=== PATIENT | female | born 1980 | race Caucasian/White ===

== ENCOUNTER 2016-12-04 18:11 | Emergency (ER) | payer OTHER ==
--- NOTE | 2016-12-04 20:16 | ED NURSING NOTES ---
Clinical Report - Nurses [facility] [address] [place] [address] 12/04/2016 18:13 Patient: ALIX WOODRUFF TRIAGE Acuity: LEVEL 4. Chief Complaint: RIGHT UPPER EXTREMITY NUMBNESS and TINGLING. Location of symptoms- right arm. Alert. No acute distress. SEPSIS SCREEN: Sepsis Screen. Negative (no infection suspected/documented). NETTIE COMA SCORE: Nettie Coma Scale: 15- eyes open spontaneously (4); best verbal response- oriented x 4 (5); best motor response- obeys commands (6). --18:44 Shanna Gilbert R.N. 18:35 12/04/16. BP: 126/82. HR: 100. RR: 20. O2 saturation: 100% on room air. Temp: 98.1 F (oral). Pain level now: 0/10. --18:44 Shanna Gilbert R.N. Weight: 77.1 kg stated. Height/Length: 65 inches Per Patient. BMI: 28.3. --18:42 Shanna Gilbert R.N. Medications Methylphenidate HCl Oral. --18:40 Shanna Gilbert R.N. Suboxone Sublingual (Film 4-1 mg), daily. --18:41 Shanna Gilbert R.N. Medication/allergy information source: the patient. --18:44 Shanna Gilbert R.N. Allergies CONTRAST DYE. PCN. --18:40 Shanna Gilbert R.N. Zithromax. --18:40 Shanna Gilbert R.N. Naproxen. --18:41 Shanna Gilbert R.N. History ( assessed by this RN in [facility]. Negative FAST exam. Absence of facial droop, slurred speech. Equal strength in bilat upper extremities, equal support group manager). --18:21 Andi Khalil R.N. Arrived by private vehicle. Historian: patient. Unaccompanied. This occurred (2 days ago). ( Pt reports right arm weakness. She states "it feels like it is asleep." Pt also reports her she just found out her has been cheating on her and she is very emotional and stressed.). PAST MEDICAL HX: The patient has had a hysterectomy. SOCIAL HX: Current every day heavy tobacco smoker (cigarette and electronic cigarrettes)- less than 1 pack per day. History of drug use. Is a recovering addict. No alcohol use. FALL RISK ASSESSMENT: Fall risk assessment completed. No fall risk identified. NUTRITIONAL RISK ASSESSMENT: The nutritional risk assessment revealed no deficiencies. FUNCTIONAL ASSESSMENT: Functional assessment: no impairments noted. LEARNING NEEDS ASSESSMENT: The learning needs assessment revealed no barriers. SKIN INTEGRITY ASSESSMENT: Skin integrity risk assessment completed. No skin integrity risk identified. --18:44 Shanna Gilbert R.N. PROBLEMS: Cellulitis. Sprain. Heart Murmur. Myofascial Strain. Prior Injury, Same Area. Contusion. Back Pain. Sciatica. Lumbar Strain. Fall. --18:41 Shanna Gilbert R.N. ADDITIONAL SURGERIES: Cholecystectomy. . Hysterectomy. --18:41 Shanna Gilbert R.N. Assessment GENERAL / NEURO / PSYCH: Alert. Oriented X 4. Appears in no acute distress. (tearful). Patient appears calm and cooperative. RESPIRATORY: Respirations not labored. CVS: Capillary refill less than 2 seconds. GI / : Abdomen soft and nontender. SKIN: Mucous membranes are pink. Skin is warm and dry. --18:44 Shanna Gilbert R.N. Interventions ID band on patient. To treatment room. --18:44 Shanna Gilbert R.N. PHYSICAL ASSESSMENT Ambulatory to room. GENERAL / NEURO / PSYCH: Oriented X 4. Alert. Appears in no acute distress. EXTREMITIES: Extremities exhibit normal ROM. Neuro-vascular status intact to the extremity. No upper extremity edema. SKIN: Skin intact. Skin is warm and dry. --18:45 Shanna Gilbert R.N. NURSING PROGRESS NOTES 18:45 12/04/16. Two patient identifiers checked. Call light placed in reach. Side rails up x 1. Bed placed in lowest position. Brakes of bed on. Patient ready for evaluation- chart flagged. --18:45 Shanna Gilbert R.N. 19:03 12/04/16. ( Patient reports ruptured discs in neck and back. She reports C2 issues in her neck.). --19:03 Christine Joya. DISPOSITION / DISCHARGE Condition at departure: stable. No learning barriers present. Discharge instructions provided and reviewed with the patient. Patient verbalized understanding. Written instructions provided in Welsh. ( Follow up with PCP in one week as needed. Apply ice or heat as needed.). The patient was discharged by the physician store administrative assistant. She was discharged home and accompanied by water softener servicer. She left the Emergency Department ambulatory and via private vehicle. Locks Tender driving. ( Patient declined discharge vitals.). --22:16 Christine Joya 20:20 12/04/16. BP: deferred. HR: deferred. RR: deferred. O2 saturation: deferred. Temp: deferred. Pain level now deferred. --22:16 Christine Joya. Locked/Released at 12/04/2016 23:33 by Christine Joya,
--- NOTE | 2016-12-04 20:16 | ED CLINICAL REPORT ---
Clinical Report - Physicians/Mid Levels [facility] [address] [place] [address] 12/04/2016 18:13 Patient: ALIX WOODRUFF Time Seen: 19:52. Arrived- By private vehicle. Historian- patient. HISTORY OF PRESENT ILLNESS Chief Complaint: UPPER EXTREMITY PAIN and ALTERED SENSATION and ; PROBLEM IN THE RIGHT UPPER EXTREMITY. Is still present. Severity is described as being mild. The quality is noted to be aching. Symptoms located in the area of the right forearm. No chest pain, difficulty breathing, swelling or sensory loss. She has not had redness. Repetitive hand use at work. Patient denies an injury. Similar symptoms previously: None. Recent medical care: Not recently seen/assessed. REVIEW OF SYSTEMS No fever or chills. PAST HISTORY See nurses notes. Problems: Cellulitis. Sprain. Heart Murmur. Myofascial Strain. Prior Injury, Same Area. Contusion. Back Pain. Sciatica. Lumbar Strain. Fall. Medications: Suboxone Sublingual (Film 4-1 mg), daily. Methylphenidate HCl Oral. Allergies: CONTRAST DYE. Naproxen. PCN. Zithromax. SOCIAL HISTORY Smoker- current status unknown. Alcohol use. History of drug use. FAMILY HISTORY Negative. ADDITIONAL NOTES The nursing notes have been reviewed with agreement regarding the chief complaint, HPI, ROS, PMH and patient medications and allergies. PHYSICAL EXAM Vital Signs: 12/04/2016 18:35 BP: 126/82. HR: 100. RR: 20. O2 saturation: 100%. Temp: 98.1 F. Pain level now: 0/10. Have been reviewed. Appearance: Alert. Oriented X3. No acute distress. Skin: Skin intact. Skin warm and dry. Normal skin color. Normal skin turgor. Extremities: No signs of infection present in the upper extremities. No upper extremity pulse deficit present. Upper extremity capillary refill not prolonged. No upper extremity edema. No axillary adenopathy. Negative Tinel sign. Negative Joann test. Right forearm: mild tenderness. Neurovascular intact distally. No erythema, swelling, laceration or abrasion. Neuro: Oriented X 3. PROGRESS AND PROCEDURES Course of Care: Patient is stable. CLINICAL IMPRESSION Acute traumatic tendonitis in the right forearm. INSTRUCTIONS Apply ice for 10 minutes three times a day for three days followed by dry heat. No restrictions to activity. No dietary restrictions. Warnings: GENERAL WARNINGS: Return or contact your physician immediately if your condition worsens or changes unexpectedly, if not improving as expected, or if other problems arise. Your Current Medications: CONTINUE TAKING THE FOLLOWING MEDICATIONS: Methylphenidate HCl Oral. Suboxone Sublingual : Film 4-1 mg, daily. Follow-up: Follow up with your doctor if not better. Understanding of the discharge instructions verbalized by patient. (Electronically signed by Tiffany Manning PA-C 12/05/2016 0:37)
--- NOTE | 2016-12-04 20:16 | ED CLINICAL REPORT ---
Clinical Report - Physicians/Mid Levels [facility] [address] [place] [address] 12/04/2016 18:13 Patient: ALIX WOODRUFF Time Seen: 19:52. Arrived- By private vehicle. Historian- patient. HISTORY OF PRESENT ILLNESS Chief Complaint: UPPER EXTREMITY PAIN and ALTERED SENSATION and ; PROBLEM IN THE RIGHT UPPER EXTREMITY. Is still present. Severity is described as being mild. The quality is noted to be aching. Symptoms located in the area of the right forearm. No chest pain, difficulty breathing, swelling or sensory loss. She has not had redness. Repetitive hand use at work. Patient denies an injury. Similar symptoms previously: None. Recent medical care: Not recently seen/assessed. REVIEW OF SYSTEMS No fever or chills. PAST HISTORY See nurses notes. Problems: Cellulitis. Sprain. Heart Murmur. Myofascial Strain. Prior Injury, Same Area. Contusion. Back Pain. Sciatica. Lumbar Strain. Fall. Medications: Suboxone Sublingual (Film 4-1 mg), daily. Methylphenidate HCl Oral. Allergies: CONTRAST DYE. Naproxen. PCN. Zithromax. SOCIAL HISTORY Smoker- current status unknown. Alcohol use. History of drug use. FAMILY HISTORY Negative. ADDITIONAL NOTES The nursing notes have been reviewed with agreement regarding the chief complaint, HPI, ROS, PMH and patient medications and allergies. PHYSICAL EXAM Vital Signs: 12/04/2016 18:35 BP: 126/82. HR: 100. RR: 20. O2 saturation: 100%. Temp: 98.1 F. Pain level now: 0/10. Have been reviewed. Appearance: Alert. Oriented X3. No acute distress. Skin: Skin intact. Skin warm and dry. Normal skin color. Normal skin turgor. Extremities: No signs of infection present in the upper extremities. No upper extremity pulse deficit present. Upper extremity capillary refill not prolonged. No upper extremity edema. No axillary adenopathy. Negative Tinel sign. Negative Joann test. Right forearm: mild tenderness. Neurovascular intact distally. No erythema, swelling, laceration or abrasion. Neuro: Oriented X 3. PROGRESS AND PROCEDURES Course of Care: Patient is stable. CLINICAL IMPRESSION Acute traumatic tendonitis in the right forearm. INSTRUCTIONS Apply ice for 10 minutes three times a day for three days followed by dry heat. No restrictions to activity. No dietary restrictions. Warnings: GENERAL WARNINGS: Return or contact your physician immediately if your condition worsens or changes unexpectedly, if not improving as expected, or if other problems arise. Your Current Medications: CONTINUE TAKING THE FOLLOWING MEDICATIONS: Methylphenidate HCl Oral. Suboxone Sublingual : Film 4-1 mg, daily. Follow-up: Follow up with your doctor if not better. Understanding of the discharge instructions verbalized by patient. (Electronically signed by Tiffany Manning PA-C 12/05/2016 0:37)
--- NOTE | 2016-12-04 20:16 | ED NURSING NOTES ---
Clinical Report - Nurses [facility] [address] [place] [address] 12/04/2016 18:13 Patient: ALIX WOODRUFF TRIAGE Acuity: LEVEL 4. Chief Complaint: RIGHT UPPER EXTREMITY NUMBNESS and TINGLING. Location of symptoms- right arm. Alert. No acute distress. SEPSIS SCREEN: Sepsis Screen. Negative (no infection suspected/documented). NETTIE COMA SCORE: Nettie Coma Scale: 15- eyes open spontaneously (4); best verbal response- oriented x 4 (5); best motor response- obeys commands (6). --18:44 Shanna Gilbert R.N. 18:35 12/04/16. BP: 126/82. HR: 100. RR: 20. O2 saturation: 100% on room air. Temp: 98.1 F (oral). Pain level now: 0/10. --18:44 Shanna Gilbert R.N. Weight: 77.1 kg stated. Height/Length: 65 inches Per Patient. BMI: 28.3. --18:42 Shanna Gilbert R.N. Medications Methylphenidate HCl Oral. --18:40 Shanna Gilbert R.N. Suboxone Sublingual (Film 4-1 mg), daily. --18:41 Shanna Gilbert R.N. Medication/allergy information source: the patient. --18:44 Shanna Gilbert R.N. Allergies CONTRAST DYE. PCN. --18:40 Shanna Gilbert R.N. Zithromax. --18:40 Shanna Gilbert R.N. Naproxen. --18:41 Shanna Gilbert R.N. History ( assessed by this RN in [facility]. Negative FAST exam. Absence of facial droop, slurred speech. Equal strength in bilat upper extremities, equal hotel and dining room cashier). --18:21 Andi Khalil R.N. Arrived by private vehicle. Historian: patient. Unaccompanied. This occurred (2 days ago). ( Pt reports right arm weakness. She states "it feels like it is asleep." Pt also reports her she just found out her has been cheating on her and she is very emotional and stressed.). PAST MEDICAL HX: The patient has had a hysterectomy. SOCIAL HX: Current every day heavy tobacco smoker (cigarette and electronic cigarrettes)- less than 1 pack per day. History of drug use. Is a recovering addict. No alcohol use. FALL RISK ASSESSMENT: Fall risk assessment completed. No fall risk identified. NUTRITIONAL RISK ASSESSMENT: The nutritional risk assessment revealed no deficiencies. FUNCTIONAL ASSESSMENT: Functional assessment: no impairments noted. LEARNING NEEDS ASSESSMENT: The learning needs assessment revealed no barriers. SKIN INTEGRITY ASSESSMENT: Skin integrity risk assessment completed. No skin integrity risk identified. --18:44 Shanna Gilbert R.N. PROBLEMS: Cellulitis. Sprain. Heart Murmur. Myofascial Strain. Prior Injury, Same Area. Contusion. Back Pain. Sciatica. Lumbar Strain. Fall. --18:41 Shanna Gilbert R.N. ADDITIONAL SURGERIES: Cholecystectomy. . Hysterectomy. --18:41 Shanna Gilbert R.N. Assessment GENERAL / NEURO / PSYCH: Alert. Oriented X 4. Appears in no acute distress. (tearful). Patient appears calm and cooperative. RESPIRATORY: Respirations not labored. CVS: Capillary refill less than 2 seconds. GI / : Abdomen soft and nontender. SKIN: Mucous membranes are pink. Skin is warm and dry. --18:44 Shanna Gilbert R.N. Interventions ID band on patient. To treatment room. --18:44 Shanna Gilbert R.N. PHYSICAL ASSESSMENT Ambulatory to room. GENERAL / NEURO / PSYCH: Oriented X 4. Alert. Appears in no acute distress. EXTREMITIES: Extremities exhibit normal ROM. Neuro-vascular status intact to the extremity. No upper extremity edema. SKIN: Skin intact. Skin is warm and dry. --18:45 Shanna Gilbert R.N. NURSING PROGRESS NOTES 18:45 12/04/16. Two patient identifiers checked. Call light placed in reach. Side rails up x 1. Bed placed in lowest position. Brakes of bed on. Patient ready for evaluation- chart flagged. --18:45 Shanna Gilbert R.N. 19:03 12/04/16. ( Patient reports ruptured discs in neck and back. She reports C2 issues in her neck.). --19:03 Christine Joya. DISPOSITION / DISCHARGE Condition at departure: stable. No learning barriers present. Discharge instructions provided and reviewed with the patient. Patient verbalized understanding. Written instructions provided in Croatian. ( Follow up with PCP in one week as needed. Apply ice or heat as needed.). The patient was discharged by the physician export sales assistant. She was discharged home and accompanied by salesperson men's and boys' clothing. She left the Emergency Department ambulatory and via private vehicle. Clerical Support driving. ( Patient declined discharge vitals.). --22:16 Christine Joya 20:20 12/04/16. BP: deferred. HR: deferred. RR: deferred. O2 saturation: deferred. Temp: deferred. Pain level now deferred. --22:16 Christine Joya. Locked/Released at 12/04/2016 23:33 by Christine Joya,
--- NOTE | 2016-12-05 00:37 | ED DISCHARGE INSTRUCTIONS ---
Patient: ALIX WOODRUFF General Instructions [facility] VisitID: [id number] [place] [address] 36y, F Registration Date/Time: 12/04/2016 Acute traumatic tendonitis in the right forearm. INSTRUCTIONS Apply ice for 10 minutes three times a day for three days followed by dry heat. No restrictions to activity. No dietary restrictions. Warnings: GENERAL WARNINGS: Return or contact your physician immediately if your condition worsens or changes unexpectedly, if not improving as expected, or if other problems arise. Your Current Medications: CONTINUE TAKING THE FOLLOWING MEDICATIONS: Methylphenidate HCl Oral. Suboxone Sublingual : Film 4-1 mg, daily. Follow-up: Follow up with your doctor if not better. Understanding of the discharge instructions verbalized by patient. ADDITIONAL INFORMATION Tendonitis A tendon is the thick fibrous cord that joins muscle to bone and causes joints to move. Tendonitis is inflammation of the tendon which may be due to overuse, injury or infection. This usually involves the shoulders, forearm, wrist, hands and foot. Symptoms include local pain, swelling and tenderness to the touch. Movement of the involved joint increases the pain. Tendonitis requires about 4 to 6 weeks to heal. It is treated by preventing motion of the tendon with a splint or brace and use of anti-inflammatory medicine. Home Care: Apply an ice pack (ice cubes in a plastic bag, wrapped in a towel) over the injured area for 20 minutes every 1-2 hours the first day for pain relief. Continue this 3-4 times a day until the pain and swelling goes away. Rest the inflamed joint and protect it from movement. You may use ibuprofen (Motrin, Advil) or naproxen (Aleve, Naprosyn) to treat pain and inflammation, unless another medicine was prescribed. If you can't take these medicines, acetaminophen (Tylenol) may help with the pain, but does not treat inflammation. [NOTE : If you have chronic liver or kidney disease or ever had a stomach ulcer or GI bleeding, talk with your doctor before using these medicines.] As your symptoms improve, begin gradual motion at the involved joint. Follow Up With Your Doctor If Not Improving After The First Five Days Of Treatment. Get Prompt Medical Attention If Any Of The Following Occur: Redness over the painful area Increasing pain or swelling at the joint Fever of 100.4F (38C) or higher, or as directed by your healthcare provider You have been given the following additional information: Tendonitis No restrictions to activity. (Electronically signed by Tiffany Manning PA-C 12/05/2016 0:37)
--- NOTE | 2016-12-05 00:37 | ED MED RECONCILIATION SUMMARY ---
Patient: ALIX WOODRUFF Medication Reconciliation Report [facility] VisitID: [id number] [address] [place] [address] 36y, F Registration Date/Time: 12/04/2016 Weight: 77.1 kg Height/Length: 65 in. BMI: 28.3 ALLERGIES: CONTRAST DYE, Naproxen, PCN, Zithromax The patient's Home Medications are listed below: CONTINUE TAKING THE FOLLOWING MEDICATIONS: Methylphenidate HCl Oral Suboxone Sublingual (4-1 mg), daily The source(s) of the original Home Medication information: patient The following Medications were given to the patient in the Emergency Department: None. The following Medications were prescribed to the patient: None.
--- NOTE | 2016-12-05 00:37 | ED MAR SUMMARY ---
..... Medication Administration Record [facility] [address] [place], [place] [id number] Patient: ALIX WOODRUFF Visit ID: [id number] 36y, F Weight: 77.1 kg Height/Length: 65 in BMI: 28.3 ALLERGIES: Naproxen, CONTRAST DYE, PCN, Zithromax
--- NOTE | 2016-12-05 00:37 | ED MED RECONCILIATION SUMMARY ---
Patient: ALIX WOODRUFF Medication Reconciliation Report [facility] VisitID: [id number] [address] [place] [address] 36y, F Registration Date/Time: 12/04/2016 Weight: 77.1 kg Height/Length: 65 in. BMI: 28.3 ALLERGIES: CONTRAST DYE, Naproxen, PCN, Zithromax The patient's Home Medications are listed below: CONTINUE TAKING THE FOLLOWING MEDICATIONS: Methylphenidate HCl Oral Suboxone Sublingual (4-1 mg), daily The source(s) of the original Home Medication information: patient The following Medications were given to the patient in the Emergency Department: None. The following Medications were prescribed to the patient: None.
--- NOTE | 2016-12-05 00:37 | ED MAR SUMMARY ---
..... Medication Administration Record [facility] [address] [place], [place] [id number] Patient: ALIX WOODRUFF Visit ID: [id number] 36y, F Weight: 77.1 kg Height/Length: 65 in BMI: 28.3 ALLERGIES: Naproxen, CONTRAST DYE, PCN, Zithromax
== END 2016-12-04 20:20 | disposition home or self-care (01) ==
LOC: ED SRH 18:11
DX: M70.831 Other soft tissue disorders related to use, overuse and pressure, right forearm (principal); X50.3XXA Overexertion from repetitive movements, initial encounter; Y93.89 Activity, other specified; Y99.0 Civilian activity done for income or pay; Y92.9 Unspecified place or not applicable; Z88.0 Allergy status to penicillin; Z88.1 Allergy status to other antibiotic agents; Z88.8 Allergy status to other drugs, medicaments and biological substances; Z79.899 Other long term (current) drug therapy